=== PATIENT | male | born 1955 | race Caucasian/White ===

== ENCOUNTER → 2017-10-18 10:46 | Outpatient (CLI) | payer OTHER, SELFPAY | PROVIDERS: Visit Provider Physician Assistant | DX: N39.0 Urinary tract infection, site not specified (principal) | CPT/HCPCS: 87086; 87186 ==

== ENCOUNTER → 2018-06-19 09:43 | Outpatient (CLI) | payer OTHER, SELFPAY | PROVIDERS: Visit Provider Physician Assistant | DX: R50.9 Fever, unspecified (principal) | CPT/HCPCS: 87400 ==

== ENCOUNTER → 2019-03-21 08:31 | Outpatient (CLI) | payer OTHER, SELFPAY ==
[2019-03-21 09:44] LABS: Cholesterol 226 mg/dL (140-199); Glucose Promotional 93 mg/dL (80-110); HDL Cholesterol 92 mg/dL (40-60); LDL Cholesterol Calculated 125 mg/dL (<100); Triglycerides 44 mg/dL (35-150)
== END ==
DX: Z13.9 Encounter for screening, unspecified (principal)
CPT/HCPCS: 80061; 82947

== ENCOUNTER → 2019-06-09 07:42 | Outpatient (CLI) | payer MEDICARE, SELFPAY ==
[2019-06-09 09:14] LABS: BUN Creatinine Ratio 17.3 (6-22); Blood Urea Nitrogen 19 mg/dL (9-20); Calcium 9.3 mg/dL (8.4-10.2); Carbon Dioxide 32 mmol/L (22-32); Chloride 98 mmol/L (98-107); Estimated Glomerular Filt Rate > 60.0 mL/min (>60); Glucose 99 mg/dL (80-110); HEMOLYSIS < 15 (0-50); Potassium 4.3 mmol/L (3.4-5.1); Sodium 138 mmol/L (137-145)
[2019-06-09 09:35] LABS: Prostate Specific Antigen Scrn 0.492 ng/mL (0.1-4.0)
== END ==
PROVIDERS: PCP Student in an Organized Health Care Education/Training Program; Visit Provider Student in an Organized Health Care Education/Training Program
DX: Z12.5 Encounter for screening for malignant neoplasm of prostate (principal); E87.5 Hyperkalemia; R94.31 Abnormal electrocardiogram [ECG] [EKG]
CPT/HCPCS: 36415; 80048; G0103

== ENCOUNTER → 2019-07-12 15:44 | Outpatient (CLI) | payer MEDICARE, OTHER, SELFPAY ==
[2019-07-12 17:44] LABS: Albumin 4.6 g/dL (3.5-5.0); Lactate Dehydrogenase 438 U/L (313-618); Total Protein 7.8 g/dL (6.3-8.2)
[2019-07-12 17:45] LABS: Hemoglobin 13.4 g/dL (13.5-17.5); Mean Corpuscular HGB Conc 34.5 % (30-36); Mean Corpuscular Hemoglobin 32.6 PG (26-34); Mean Corpuscular Volume 94.4 fL (80-100); Platelet Count 197 X10^3/uL (150-400); Red Blood Cell Count 4.13 X10^6/uL (4.5-5.9); Red Cell Distribution Width 13.4 % (11.6-14.8); White Blood Cell Count 4.4 X10^3/uL (4.5-11.0)
[2019-07-12 21:10] LABS: Neutrophils Absolute Manual 2728 /uL (3000-5900); RBC Morphology Normal Morphology; Total Cells Counted 100
== END ==
PROVIDERS: PCP Student in an Organized Health Care Education/Training Program; Referring Provider Student in an Organized Health Care Education/Training Program; Visit Provider Student in an Organized Health Care Education/Training Program
DX: R59.1 Generalized enlarged lymph nodes (principal)
CPT/HCPCS: 36415; 82040; 83615; 84155; 85025

== ENCOUNTER → 2019-08-08 12:32 | Outpatient (CLI) | payer MEDICARE, OTHER, SELFPAY ==
--- NOTE | 2019-08-08 | DI.US.S_ITS ---
PROCEDURE: US SOFT TISSUE HEAD AND NECK INDICATIONS: RIGHT SUPRAMANDIBULAR LUMP X 2 MONTHS TECHNIQUE: Real-time scanning was performed of the neck region of interest, with image documentation. COMPARISON: None. FINDINGS: 1.0 x 0.4 x 1.0 cm possible lymph node versus mass with hypoechoic appearance. No internal vascularity which is seen anterior to the mandible. IMPRESSION: Presumed lymph node seen in the region of perimandibular palpable abnormality. No definite pathologic enlargement although recommend clinical management, and if needed continued ultrasound surveillance. If this enlarges or based on high clinical suspicion, ultrasound guided FNA could be considered. Dictated by: Linwood Savage M.D. on 08/08/2019 at 16:28 Approved by: Linwood Savage M.D. on 08/08/2019 at 16:30
== END ==
PROVIDERS: PCP Student in an Organized Health Care Education/Training Program; Referring Provider Otolaryngology; Visit Provider Otolaryngology
DX: R22.0 Localized swelling, mass and lump, head (principal)
CPT/HCPCS: 76536

== ENCOUNTER → 2022-03-11 14:36 | Outpatient (CLI) | payer MEDICARE, OTHER, SELFPAY ==
[2022-03-11 16:49] LABS: Add Manual Diff / Slide Review NO; Basophils Absolute Auto 0 /uL (0-100); Eosinophils Absolute Auto 300 /uL (0-450); Eosinophils Percent Auto 8.4 % (2-4); Hematocrit 33.1 % (41-53); Hemoglobin 11.6 g/dL (13.5-17.5); Lymphocytes Absolute Auto 900 /uL (1100-4500); Lymphocytes Percent Auto 29.5 % (25-40); Mean Corpuscular Hemoglobin 33.1 PG (26-34); Mean Corpuscular Volume 94.6 fL (80-100); Monocytes Absolute Auto 200 /uL (0-900); Monocytes Percent Auto 6.4 % (3-14); Neutrophils Absolute Auto 1800 /uL (1500-7000); Neutrophils Percent Auto 54.7 % (50-75); Platelet Count 187 X10^3/uL (150-400); Red Cell Distribution Width 13.7 % (11.6-14.8); White Blood Cell Count 3.2 X10^3/uL (4.5-11.0)
[2022-03-11 17:42] LABS: Prostate Specific Antigen Scrn 0.547 ng/mL (0.1-4.0)
[2022-03-12 16:20] LABS: Hep C Virus Ab w/Reflex Quant NEGATIVE s/c (NEGATIVE)
== END ==
PROVIDERS: PCP Student in an Organized Health Care Education/Training Program; Referring Provider Student in an Organized Health Care Education/Training Program; Visit Provider Student in an Organized Health Care Education/Training Program
DX: D64.9 Anemia, unspecified (principal); Z12.5 Encounter for screening for malignant neoplasm of prostate; Z11.59 Encounter for screening for other viral diseases
CPT/HCPCS: 36415; 85025; 86803; G0103

== ENCOUNTER → 2022-03-18 07:34 | Outpatient (CLI) | payer MEDICARE, OTHER, SELFPAY ==
[2022-03-18 11:09] LABS: Reticulocyte Count, Percent 0.8 % (0.9-2.6)
[2022-03-18 11:38] LABS: HEMOLYSIS < 15 (0-50); Iron 108 ug/dL (49-181)
[2022-03-18 11:51] LABS: Percent Iron Saturation 43 % (20-50); Total Iron Binding Capacity 251 ug/dL (261-462); Transferrin 174 mg/dL (206-381)
[2022-03-18 11:52] LABS: Alanine Aminotransferase 12 IU/L (<50); Albumin 4.1 g/dL (3.5-5.0); Albumin Globulin Ratio 0.7 (1.0-2.8); Alkaline Phosphatase 75 U/L (38-126); Aspartate Aminotransferase 30 IU/L (17-59); BUN Creatinine Ratio 15.7 (6-22); Bilirubin Total 0.5 mg/dL (0.2-1.3); Blood Urea Nitrogen 19 mg/dL (9-20); Calcium 9.5 mg/dL (8.4-10.2); Carbon Dioxide 28 mmol/L (22-32); Chloride 98 mmol/L (98-107); Estimated Glomerular Filt Rate > 60 mL/min (>60); Globulin 6.2 g/dL (1.7-4.1); Glucose 89 mg/dL (80-110); HEMOLYSIS < 15 (0-50); Lactate Dehydrogenase 311 U/L (313-618); Potassium 4.5 mmol/L (3.4-5.1); Sodium 139 mmol/L (137-145); Total Protein 10.3 g/dL (6.3-8.2)
[2022-03-18 12:10] LABS: TSH w/ Reflex to FT4 6.21 uIU/mL (0.47-4.68)
[2022-03-18 12:18] LABS: Ferritin 172 ng/mL (18-464)
[2022-03-18 12:51] LABS: Free T4, Direct Thyroxine 0.99 ng/dL (0.78-2.19)
== END ==
PROVIDERS: PCP Student in an Organized Health Care Education/Training Program; Referring Provider Student in an Organized Health Care Education/Training Program; Visit Provider Student in an Organized Health Care Education/Training Program
DX: D64.9 Anemia, unspecified (principal)
CPT/HCPCS: 36415; 80053; 82607; 82728; 82746; 83540; 83550; 83615; 84439; 84443; 85045

== ENCOUNTER → 2022-03-31 10:44 | Outpatient (CLI) | payer MEDICARE, OTHER, SELFPAY ==
[2022-03-31 12:19] LABS: COVID19 -Nasal RAPID Negative (Negative)
== END ==
PROVIDERS: PCP Student in an Organized Health Care Education/Training Program; Visit Provider Surgery
DX: Z01.812 Encounter for preprocedural laboratory examination (principal); Z20.822 Contact with and (suspected) exposure to COVID-19
CPT/HCPCS: 87635

== ENCOUNTER → 2022-03-31 10:46 | Outpatient (CLI) | payer MEDICARE, OTHER, SELFPAY ==
[2022-04-01 09:03] LABS: IGA 3674 mg/dL (61-437); IGG 296 mg/dL (603-1613); IGM 8 mg/dL (20-172)
[2022-04-01 17:44] LABS: Free Kappa Lt Chains, Serum 127.7 mg/L (3.3-19.4); Free Lambda Lt Chains,Serum 2.4 mg/L (5.7-26.3)
[2022-04-02 19:00] LABS: Albumin 4.1 g/dL (2.9-4.4); Alpha 1 Globulin 0.2 g/dL (0.0-0.4); Alpha 2 Globulin 0.6 g/dL (0.4-1.0); Beta 1 Globulin 0.8 g/dL (0.7-1.3); Gamma Globulin 3.7 g/dL (0.4-1.8); Immunoglobulin A 3783 mg/dL (61-437); Immunoglobulin G 301 mg/dL (603-1613); Immunoglobulin M 8 mg/dL (20-172); Protein, Total 9.4 g/dL (6.0-8.5)
== END ==
PROVIDERS: PCP Student in an Organized Health Care Education/Training Program; Referring Provider Student in an Organized Health Care Education/Training Program; Visit Provider Student in an Organized Health Care Education/Training Program
DX: Z01.812 Encounter for preprocedural laboratory examination (principal); D47.2 Monoclonal gammopathy; D64.9 Anemia, unspecified; Z20.822 Contact with and (suspected) exposure to COVID-19
CPT/HCPCS: 36415; 82784; 83883; 84155; 84165; 87635; C9803

== ENCOUNTER 2022-04-02 10:57 | Day surgery (SDC) | payer MEDICARE, OTHER, SELFPAY ==
[2022-04-02 11:18] VITALS: BP 118/67; PULSE 54; RESP 16; TEMP 36.1; O2SAT 100; BMI 23.3
[2022-04-02] MEDS: LACTATED RINGERS 1,000 ML 100 ML IV (11:29)
--- NOTE | 2022-04-02 12:54 | P.HP_ITS ---
History of Present Illness History of Present Illness Date Patient Seen: 04/02/22 Time Patient Seen: 12:55 Chief complaint: SCREENING COLONOSCOPY Narrative: Ashish is a 66-year-old man who is here for a colonoscopy. His last colonoscopy was about 10 years ago and no polyps were found. He has no known family history of colon cancer. Patient History Medical History (Updated 04/02/22 @ 12:55 by Karl Cheney MD) Chicken pox (~1959) Mass of soft tissue of face Measles (~1959) Mixed hyperlipidemia Mumps (~1959) Scalp psoriasis Skin cancer (~2007) Varicose veins of both lower extremities Vision disorder Surgical History (Updated 11/15/18 @ 21:33 by Amara Mercado) Anesthesia Basal cell carcinoma (~02/29/08) History of colonoscopy [place] teeth removed Family & Social History Family History (Updated 11/15/18 @ 21:35 by Amara Mercado) Father Cancer Mother Stroke Sister Multiple sclerosis Social History: household members spouse Tobacco & Substance use: Smoking Status Never smoker alcohol intake frequency a few times a week Substance Use Type does not use Meds Home Medications and Allergies Allergies Allergy/AdvReac Type Severity Reaction Status Date / Time No Known Drug Allergies Allergy Verified 04/02/22 11:13 Exam Vital Signs (past 8 hours): - 04/02/22 11:18 Temperature 97.0 F L Pulse Rate 54 L Respiratory Rate 16 Blood Pressure 118/67 Pulse Oximetry 100 Oxygen Delivery Method Room Air Oxygen Delivery Method Room Air Const General: healthy appearing Assessment & Plan Assessment and plan (1) Colon cancer screening: Status: Acute Plan Ashish is a 66-year-old man here for colonoscopy for colon cancer screening. We reviewed the risks and benefits and he would like to proceed. Time Spent With Patient Critical Care time: I spent a total of [] minutes of critical care time on this patient's care today; this time is exclusive of procedural time.
--- NOTE | 2022-04-02 13:10 | SUR.OPER ---
CECUM AT 1309
[2022-04-02 13:18] VITALS: BP 98/51; PULSE 58; RESP 13; TEMP 36.8; O2SAT 98
--- NOTE | 2022-04-02 13:18 | PM.OP.COLON ---
Operative Date/Time/Diagnoses Date of procedure: 04/02/22 Time of procedure: 13:18 Pre-op diagnosis: Colon cancer screening Post-op diagnosis: same Procedure & Clinicians Study performed: Colonoscopy Same procedure as scheduled: Yes Surgeon: Karl Cheney Procedure Notes Procedure in detail: Surgeon: Karl Cheney MD Anesthesia: MAC by Dr. Gifford Procedure: The patient was brought to the endoscopy suite, placed in left lateral decubitus position. The patient was connected to monitoring devices. A time-out was performed. Sedation was administered. Once the patient was adequately sedated, a digital rectal exam was performed and was normal. The scope was then inserted and advanced to the cecum where the appendiceal orifice was identified and photographed. The scope was then slowly withdrawn over greater than 6 minutes. The mucosa was thoroughly inspected. No abnormalities were noted. The scope was retroflexed in the rectum. No abnormalities were noted. The scope was straightened and removed. The patient was awakened and brought to recovery. Scope withdrawal time: 6 minutes Sedation time: 16 minutes EBL: 0 Findings: Normal colon Post-procedure Recommendations: Colonoscopy in 10 years Disposition: PACU
[2022-04-02 13:23] VITALS: BP 98/53; PULSE 52; RESP 10; O2SAT 100
[2022-04-02 13:28] VITALS: BP 105/61; PULSE 51; RESP 9; O2SAT 98
[2022-04-02 13:33] VITALS: BP 94/51; PULSE 55; RESP 8; O2SAT 10
[2022-04-02 13:44] VITALS: BP 98/54; PULSE 66; RESP 16; TEMP 36.2; O2SAT 98
== END 2022-04-02 13:48 | disposition home or self-care (01) ==
PROVIDERS: PCP Student in an Organized Health Care Education/Training Program; Referring Provider Surgery; Visit Provider Surgery
PROC: 0DJD8ZZ Inspection of Lower Intestinal Tract, Via Natural or Artificial Opening Endoscopic (ICD-10-PCS; CPT 45378; principal; 2022-04-02 12:15)
DX: Z12.11 Encounter for screening for malignant neoplasm of colon (principal)
CPT/HCPCS: G0121; 99152; J2704; J3010

== ENCOUNTER → 2022-05-19 13:47 | Outpatient (CLI) | payer MEDICARE, OTHER, SELFPAY ==
--- NOTE | 2022-05-19 13:49 | DI.RAD.S_ITS ---
PROCEDURE: XR BONE SURVEY INDICATIONS: suspect multiple myeloma, assess for lytic lesions TECHNIQUE: Multiple views obtained of various bony structures as described below. COMPARISON: None. FINDINGS: Skull (lateral): No suspicious bony lesions. No fractures. Thoracic spine (AP, lateral): No suspicious bony lesions. No acute vertebral body compression fractures. Degenerative disc disease throughout mid to lower thoracic spine is seen. Lumbar spine (AP, lateral): No suspicious bony lesions. No acute vertebral body compression fractures. Mild degenerative disc disease throughout lumbar spine is seen. Pelvis (AP): No suspicious bony lesions. No fractures. Overlying soft tissues appear unremarkable. Right and left humeri (AP): Subtle small radiolucent areas involving right proximal humeral shaft are seen. No fractures. Overlying soft tissues appear unremarkable. Right and left femurs (AP): Limited evaluation of bony pelvis due to significant overlying bowel gas. Radiolucent area involving right proximal femoral shaft is seen measures 7 mm in size. Questionable radiolucent areas also seen scattered throughout bilateral bony pelvis and bilateral femoral head and neck region. No fractures. Overlying soft tissues appear unremarkable. IMPRESSION: 1. No definite lytic lesions are seen in skull, thoracic and lumbar spine. 2. Finding may represent small lytic lesions scattered in right proximal humeral shaft medullary space. No fracture or dislocation is seen. 3. Limited evaluation of bony pelvis and bilateral femoral head due to overlying fecal matter field bowel loops. Underlying lytic lesions scattered in bony pelvis cannot be excluded. Consider CT of pelvis for further evaluation. Additional possible small lytic lesion also seen in right proximal femoral shaft measures 7 mm in size. No pathologic fracture. Dictated by: Brandon Brooks M.D. on 05/19/2022 at 15:12 Approved by: Brandon Brooks M.D. on 05/19/2022 at 15:16
== END ==
PROVIDERS: PCP Student in an Organized Health Care Education/Training Program; Referring Provider Internal Medicine Medical Oncology; Visit Provider Internal Medicine Medical Oncology
DX: C90.00 Multiple myeloma not having achieved remission (principal); M51.36 Other intervertebral disc degeneration, lumbar region; M51.34 Other intervertebral disc degeneration, thoracic region
CPT/HCPCS: 77075

== ENCOUNTER → 2022-07-17 15:52 | Outpatient (CLI) | payer MEDICARE, OTHER, SELFPAY ==
--- NOTE | 2022-07-17 15:53 | DI.MRI.S_ITS ---
PROCEDURE: MR BONE MARROW INDICATIONS: myeloma staging, back pain TECHNIQUE: Noncontrast sagittal T1 spin echo and STIR through the spine; coronal T1 spin echo and STIR through the bony thorax, coronal T1 spin echo and STIR through the bony pelvis and femurs. COMPARISON: [facility], CR, XR BONE SURVEY, 05/19/2022, 13:53. [facility], NM, NM PET CT FUSION WHOLE BODY, 05/27/2022, 9:56. FINDINGS: Image quality: This examination is limited by involuntary motion artifact. Spine: All visualized vertebral bodies are normally aligned. At the T7 level, there is a remote anterior wedge deformity, with 40-50% loss of height anteriorly. No acute appearing vertebral body compression fractures. Within the posterior T10 level, there is a focus of bone marrow signal abnormality, as on series 7, image 15 and on series 5 image 15 that measures up to 1 cm, with decreased T1 weighted signal increased STIR signal. The bone marrow otherwise demonstrates no suspicious lesions or signal abnormalities. The central spinal canal is of normal overall caliber. The visualized spinal cord demonstrates normal intramedullary signal. The conus is in expected position. No epidural or paravertebral soft tissue masses. Pelvis and hips: The bone marrow demonstrates normal signal throughout. No pelvic ring or sacral pathologic or insufficiency fractures. Physiologic amounts of hip joint fluid are present. No joint degeneration or soft tissue bursal fluid collections. Soft tissues: There is a trace right-sided pleural effusion. No free pelvic fluid. No pathologic pelvic or inguinal adenopathy. Visualized bowel loops appear normal in caliber. Limited images through the genitourinary tract demonstrate no abnormalities. The muscles demonstrate normal overall bulk and internal signal. IMPRESSION: Solitary focus within the posterior T10 level, which is mildly suspicious for neoplastic involvement. Please consider short-term follow-up in 3 months for further evaluation. T7 anterior wedge deformity seen, without acute features, yet this is not seen on the plain films 05/19/2022. Additional findings: Trace right-sided pleural effusion. Dictated by: Steve Birmingham M.D. on 07/17/2022 at 16:13 Approved by: Steve Birmingham M.D. on 07/17/2022 at 16:19
== END ==
PROVIDERS: PCP Student in an Organized Health Care Education/Training Program; Referring Provider Internal Medicine Medical Oncology; Visit Provider Internal Medicine Medical Oncology
DX: C90.00 Multiple myeloma not having achieved remission (principal)
CPT/HCPCS: 77084

== ENCOUNTER → 2022-08-08 10:02 | Outpatient (CLI) | payer MEDICARE, OTHER, SELFPAY ==
--- NOTE | 2022-08-08 10:04 | DI.RAD.S_ITS ---
PROCEDURE: XR THORACIC SPINE 3V INDICATIONS: THORACIC BACK PAIN TECHNIQUE: 3 views of the thoracic spine were acquired. COMPARISON: [facility], MR, MR BONE MARROW, 07/17/2022, 16:21. FINDINGS: Bones: There has been interval worsening of a T7 anterior wedge compression fracture with reference to the MR scanning 07/17/22. The vertebral height reduction is greater anteriorly than posteriorly, and the anterior height reduction is estimated 56% when compared to the normal vertebral body at T8 immediately below. Additionally there is posterior height reduction at the T7 vertebral body, with reference to the normal appearing levels above and below. There is a current 10-15% height reduction when compared to the normal appearing vertebral height more posteriorly.. No suspicious bony lesions. 12 pairs of ribs are noted, and appear intact where visualized. Soft tissues: No paravertebral stripe thickening. IMPRESSION: Worsening anterior wedge compression fracture at T7, etiology uncertain, with 56% height reduction anteriorly and approximately 10-15% height reduction posteriorly when compared to the normal vertebral heights above and below. This represents a significant change from an MR scan performed 07/17/22. An osteolytic or blastic bone lesion is not found. No additional compression fracture is seen elsewhere over the visualized thoracic spine. Dictated by: Rohith Pickard M.D. on 08/08/2022 at 20:23 Approved by: Rohith Pickard M.D. on 08/08/2022 at 20:29
== END ==
PROVIDERS: Family Provider Student in an Organized Health Care Education/Training Program; PCP Student in an Organized Health Care Education/Training Program; Referring Provider Anesthesiology; Visit Provider Anesthesiology
DX: M48.54XA Collapsed vertebra, not elsewhere classified, thoracic region, initial encounter for fracture (principal); M54.6 Pain in thoracic spine
CPT/HCPCS: 72072

== ENCOUNTER → 2022-08-21 12:38 | Outpatient (CLI) | payer MEDICARE, OTHER, SELFPAY ==
--- NOTE | 2022-08-21 13:04 | DI.DEXA.S_ITS ---
Name: JAMAL AVELAR Age: 67 Sex: Male Ethnicity: White Date of : 1955 Indication: prior fracture; Referring Provider: JERAMY LAND Study: Bone densitometry was performed. Exam Date: August 21, 2022 Accession number: [id number] Bone Density: Region BMD T-score Z-score Classification AP Spine(L1-L4) 0.923 -1.1 -0.7 Osteopenia Femoral Neck (Left) 0.695 -1.4 -0.6 Osteopenia Total Hip (Left) 0.894 -0.4 -0.3 Normal Femoral Neck (Right) 0.704 -1.3 -0.5 Osteopenia Total Hip (Right) 0.867 -0.6 -0.5 Normal Total Hip Mean 0.881 -0.5 -0.4 Normal World Health Organization criteria for BMD impression classify patients as: Normal (T-score at or above -1.0), Osteopenia (T-score between -1.0 and -2.5), or Osteoporosis (T-score at or below -2.5). 10-year Fracture Risk: FRAX not reported because: Prior hip or vertebral fracture Impression: The patient has low bone mass, based on the Left Femoral Neck T-score. The patient has risk factors, including: previous fracture. Discussion: INCREASED RISK OF FRACTURE DUE TO HISTORY OF LOW TRAUMA FRACTURE. The patient's previous fracture puts the patient at high risk of a future fracture. In untreated patients, the risk of osteoporotic fracture increases approximately two-fold for each 1.0 SD decrease in T-score. Low bone density is not the only risk factor for fracture; also consider factors such as patient's age, frailty or poor health, risk of falling, risk of injury, previous osteoporotic fracture, family history of osteoporosis, cigarette smoking, low body weight, etc. Not everyone with a low trauma fracture has osteoporosis; osteomalacia and other metabolic bone disorders should also be considered. Patients who have osteoporosis should be evaluated for specific diseases and conditions (secondary causes) that may cause or contribute to bone loss and fracture risk. National Osteoporosis Foundation (NOF) recommends pharmacologic intervention for patients with a prior low trauma hip or vertebral fracture regardless of BMD T-score. The patient should follow a healthful lifestyle (good nutrition with adequate calcium and vitamin D, and appropriate weight-bearing exercise). Follow-Up: Consider a repeat BMD and Vertebral Fracture Assessment (VFA) exam in 2 years or sooner if medically necessary, to reassess this patient's status. Reported by: REBEKAH KATHLEEN M.D. on 08/21/2022 1:23:00 PM.
== END ==
PROVIDERS: Family Provider Student in an Organized Health Care Education/Training Program; PCP Student in an Organized Health Care Education/Training Program; Referring Provider Student in an Organized Health Care Education/Training Program; Visit Provider Student in an Organized Health Care Education/Training Program
DX: S22.060A Wedge compression fracture of T7-T8 vertebra, initial encounter for closed fracture (principal); C90.00 Multiple myeloma not having achieved remission; M85.80 Other specified disorders of bone density and structure, unspecified site; T38.0X5A Adverse effect of glucocorticoids and synthetic analogues, initial encounter; M85.88 Other specified disorders of bone density and structure, other site
CPT/HCPCS: 77080

== ENCOUNTER 2022-09-16 11:15 | Outpatient (RCR) | payer MEDICARE, OTHER, SELFPAY ==
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
--- NOTE | 2022-08-05 16:20 | PT.OPPOC ---
Physical, Occupational & Speech Therapy At [facility] Current Diagnoses Pain in thoracic spine (08/05/22) Abnormal posture (08/05/22) Weakness (08/05/22) Visit Care Team Role Provider Type Ed Avalos MD Attending Provider Physician Family Provider Primary Care Provider Referring Provider Specialty: Internal Medicine Address: [address] [place] [address], [address], [facility] Email: [email or web address] Plan Of Care PT-OP-T Assessment and Plan Start: 08/04/22 17:19 Freq: Status: Active Protocol: Document 08/05/22 13:53 SAK (Rec: 08/05/22 14:44 SAK [id number]) Physical Therapy Assessment Rehab Potential Rehabilitation Potential Good Evaluation Complexity Number of Personal Factors/Comorbidities 1-2 Number of Body Systems Impaired 3 Clinical Presentation at Evaluation Evolving Impairments Impairments Activity Tolerance,Pain, Posture,ROM Other Concerns Barriers to Rehabilitation multiple myeloma Goals Three Impairment limited trunk ROM Impairment decreased left trunk rotation and pain with left sidebending limiting that motion forward trunk flexion limited to 15 deg vs typically able to touch the floor [facility] Goal (LTG) patient to demonstrate trunk mobility WNL including ability to return to ability to touch the floor in a standing position and normal trunk rotation and sidebending LTG Duration 11/05/22 Two Impairment postural dysfunction Impairment excess thoracic kyphosis, protracted and elevated scapulas, winging right scapula, flattened lumbar spine, Short Term Goal (STG) Patient to be instructed in neutral postural alignment and in HEP for purposes of postural correction including strengthening posterior chain musculature STG Duration 09/19/22 School Nurse Goal (LTG) Patient to demonstrate ability to self-correct posture at rest and with functional activities and be indep with postural correction exercises LTG Duration 11/05/22 One Impairment Pain left thoracic spine with radiation anteriorly Impairment severe limitation in activity level and unable to lay in bed to sleep Short Term Goal (STG) Decrease pain at least 50% with all usual activity. STG Duration 09/19/22 [facility] Goal (LTG) Decrease pain by at least 75% with all usual activies, and able to return to sleeping in bed and resume his usual exercise activities without an increase in pain LTG Duration 11/05/22 Assessment Summary Assessment Patient presenets to PT with function-limiting pain medial to left scapula with tenderness, pain radiates anterior thoracic region.No known reason except possibly due to handling heavy suitcases on vacation; pain came on while on vacation and worsened upon return. Signs and symptoms include postural dysfunction with excess thoracic kyphosis, flattened lumbar spine, protracted scapula left greater than right, winging right scapula, left shoulder lower than right , excess muscle tone right upper trap. Patient's pain inc with left sidebending improves with right sidebending, limited forward flexion to 15 deg, backward bending dec pain. Tightness right UT, protraction left scapula, winging right scapula . He was instructed in HEP for purposes of gentle thoracic mobility, postural correction, and self-massage; he was issued a handout and demonstrated good understanding. POC was discussed and patient was in agreement. Physical Therapy Plan Frequency and Duration Frequency of Treatment 2x/Week Duration of treatment (weeks) 12 Plan of Care Start Date 08/05/22 Plan of Care End Date 11/05/22 Plan of Care Dates Plan of Care Start Date 08/05/22 Plan of Care End Date 11/05/22 Electronically Signed by: Keyla Keys, PT 08/05/22 1028 If you are in agreement with this Plan of Care, please return a signed and dated copy. I have reviewed this Plan of Care and certify that the skilled therapy services above are required to meet the patient?s needs. Physician Signature Date Printed Name and Credentials Clinical Instructor Signature Printed Name and Credentials
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
--- NOTE | 2022-08-17 16:28 | PT.OTN ---
Current Diagnoses Pain in thoracic spine (08/17/22) Abnormal posture (08/17/22) Weakness (08/17/22) Physical Therapy Treatment Note PT-OP-A Visit Information Start: 08/04/22 17:19 Freq: Status: Active Protocol: Document 08/17/22 13:48 SAK (Rec: 08/17/22 14:33 SAK [id number]) Out-Patient Physical Therapy Visit Information Visit Information Visit Type Treatment Note Visit Start Time 13:48 Visit Stop Time 14:30 Total Visit Minutes 42 Visit Number 3 Evaluation Information Evaluation Date 08/05/22 Precautions Precautions Patient currently in treatment for lymphoma PT-OP-B Current Condition Start: 08/04/22 17:19 Freq: Status: Active Protocol: Document 08/17/22 13:48 SAK (Rec: 08/17/22 14:33 [facility]AK [id number]) Current Condition History of Current Condition Onset Date 6-7 weeks Current Complaints mid back pain History of Current Condition in [place] in May, midway into [facility] pain came on for no known reason . Was taking walks of 4-8miles per day, some swimming and snorkeling, never felt injury. When got home Jul 03 continued to get worse. Couldn't take a deep breath; helped some with chiropractor. Following chiropractor visit told T10 locked up, loosened that up. Problem worst is at T7, chiropractor stated he couldn' t do anything. Pain is up under the bottom of left shoulder blade. Right now worst pain left lateral trunk. Doing some exercises that seem to help some; right sidebending stretch, trunk rotation. Hasn't been able to sleep in bed yet due to pain. Typically does a lot of core strength; planks, side planks but unable to do any exercise at this time. Only thing can think of cause is heavy suitcases (50#) though tried to be careful. Discrepancy between x-ray and MRI results. States Wednesday night at 6:30 a lot of the pain decreased significantly for no known reason , yesterday; while sitting in infusion chair pain went away for awhile; Tuesdays and Wednesdays are when gets infusions and including steriods; those are best days for his pain. Today is his best day in weeks. Seeing Chalino Garcia chiropractor. Prior Treatments and Tests per Dr. Avalos's note in EMR : Relevant medical history includes a recent spinal MRI done to assess multiple myeloma, which includes an incidental finding of an anterior compression defect at T7. An x-ray skeletal survey in April 2022 does not have this defect . I evaluated the images myself and confirmed the disparity with Radiology. Under treatment for multiple myeloma, being referred for stem cell transplant. PT-OP-C Subjective Start: 08/04/22 17:19 Freq: Status: Active Protocol: Document 08/17/22 13:48 SAK (Rec: 08/17/22 14:33 [facility] [id number]) OP-PT Subjective Patient Comments Patient Comments Thinks overdid doorway stretch because feeling so good to back, front of chest now hurting, has backed off. States tennis ball and deep breathing very helpful. Did lay down on his side in bed, both sides of ribs hurt, was able to get back up without inc pain but unable to stay down. PT-OP-J Posture/Palpation/Skin Start: 08/04/22 17:19 Freq: Status: Active Protocol: Document 08/05/22 14:53 SAK (Rec: 08/05/22 16:18 [facility] [id number]) Posture Evaluation Position Standing Head/C-Spine Posture Forward Head T-Spine Posture Increased Kyphosis L-Spine Posture Decreased Lordosis Scapula Posture (R) Protracted,(L) Retracted Arm Posture (L) Internally Rotated,(R) Internally Rotated Palpation Assessment Location left thoracic Palpation Findings Tenderness Palpation Details T7-9 lateral radiating anterior PT-OP-K Range of Motion Start: 08/04/22 17:19 Freq: Status: Active Protocol: Document 08/05/22 14:53 SAK (Rec: 08/05/22 16:18 [facility] [id number]) Lumbar Spine Range of Motion Lumbar Spine Active Testing Position Standing Flexion 15 Extension 10 Rotation Left 30 Rotation Right 40 Lateral Flexion Left 25 Lateral Flexion Right 35 ROM Limitations Pain PT-OP-Q Treatments Start: 08/04/22 17:19 Freq: Status: Active Protocol: Document 08/17/22 13:48 SAK (Rec: 08/17/22 14:33 [facility] [id number]) Cardio Equipment Recumbent Stepper (Sci-Fit) Duration (Minutes) 8 Resistance 1.5 Seat Position 13 Therapeutic Exercises Sitting Exercises deep breathing Reps/Minutes 5x lateral stretch Comments painful cat/cow Comments cues for smaller motion painfree ROM lat pull Resistance L1 TB facing away Reps/Minutes 10X Standing Exercises wall posture Standing Exercise Name postural amadeo, angels Reps/Minutes 10x ea serratus punch Standing Exercise Name HEP doorway Standing Exercise Name stretch Reps/Minutes verbal review for more gentle stretch row, sh ext Resistance L1>2 TB Reps/Minutes 12x Comments verbal and tactile cues Manual Therapy Treatment Soft Tissue Mobilization thoracolumbar paraspinals Mobilization Type Myofascial Release,Strumming Intensity/Depth gentle Body Position Sitting Comments leaning forward on pillows Self-Care/Home Management Treatment Education Patient Education Home Exercise Program,Pain Management,Posture PT-OP-T Assessment and Plan Start: 08/04/22 17:19 Freq: Status: Active Protocol: Document 08/17/22 13:48 SAK (Rec: 08/17/22 14:33 SAK [id number]) Physical Therapy Assessment Goals Three Impairment limited trunk ROM Impairment decreased left trunk rotation and pain with left sidebending limiting that motion forward trunk flexion limited to 15 deg vs typically able to touch the floor Jail Goal (LTG) patient to demonstrate trunk mobility WNL including ability to return to ability to touch the floor in a standing position and normal trunk rotation and sidebending LTG Duration 11/05/22 Two Impairment postural dysfunction Impairment excess thoracic kyphosis, protracted and elevated scapulas, winging right scapula, flattened lumbar spine, Short Term Goal (STG) Patient to be instructed in neutral postural alignment and in HEP for purposes of postural correction including strengthening posterior chain musculature STG Duration 09/19/22 Robotics Testing Technician Goal (LTG) Patient to demonstrate ability to self-correct posture at rest and with functional activities and be indep with postural correction exercises LTG Duration 11/05/22 One Impairment Pain left thoracic spine with radiation anteriorly Impairment severe limitation in activity level and unable to lay in bed to sleep Short Term Goal (STG) Decrease pain at least 50% with all usual activity. STG Duration 09/19/22 Jail Goal (LTG) Decrease pain by at least 75% with all usual activies, and able to return to sleeping in bed and resume his usual exercise activities without an increase in pain LTG Duration 11/05/22 Progress Towards Goals Progress Towards Goals Progressing Toward Goals Assessment Summary Assessment Continues to report improvement though overdid exercises at home. Able to take shirts off easily now whereas before PT states it was very painful. Added wall posture, and wall angles with wall posture with good tolerance. States use of tennis ball for self-massage continues to be astonishingly helpful. Physical Therapy Plan Frequency and Duration Frequency of Treatment 2x/Week Duration of treatment (weeks) 12 Plan of Care Start Date 08/05/22 Plan of Care End Date 11/05/22 Therapeutic Interventions Therapeutic Interventions Home Exercise Program,Manual Therapy,Patient/Caregiver Education,Self-Care/Home Management,Soft Tissue Mobilization,Taping, Therapeutic Activities, Therapeutic Exercises Modalities Cold Pack/Ice Massage,Electric Stimulation,Hot Packs, Ultrasound Next Visit Focus/Plan Next Note Type Treatment Note Next Visit Plan assess response to today's addition of ther ex. Progress as able with postural correction/strengthening and flexibility/ROM
--- NOTE | 2022-08-19 10:34 | PT.OTN ---
Current Diagnoses Pain in thoracic spine (08/19/22) Abnormal posture (08/19/22) Weakness (08/19/22) Physical Therapy Treatment Note PT-OP-A Visit Information Start: 08/04/22 17:19 Freq: Status: Active Protocol: Document 08/19/22 09:50 SAK (Rec: 08/19/22 10:34 [facility] [id number]) Out-Patient Physical Therapy Visit Information Visit Information Visit Type Treatment Note Visit Start Time 09:50 Visit Stop Time 10:30 Total Visit Minutes 42 Visit Number 4 Evaluation Information Evaluation Date 08/05/22 Precautions Precautions Patient currently in treatment for lymphoma PT-OP-B Current Condition Start: 08/04/22 17:19 Freq: Status: Active Protocol: Document 08/19/22 09:50 SAK (Rec: 08/19/22 10:34 SAK [id number]) Current Condition History of Current Condition Onset Date 6-7 weeks Current Complaints mid back pain History of Current Condition in [place] in May, midway into [facility] pain came on for no known reason . Was taking walks of 4-8miles per day, some swimming and snorkeling, never felt injury. When got home Jul 03 continued to get worse. Couldn't take a deep breath; helped some with chiropractor. Following chiropractor visit told T10 locked up, loosened that up. Problem worst is at T7, chiropractor stated he couldn' t do anything. Pain is up under the bottom of left shoulder blade. Right now worst pain left lateral trunk. Doing some exercises that seem to help some; right sidebending stretch, trunk rotation. Hasn't been able to sleep in bed yet due to pain. Typically does a lot of core strength; planks, side planks but unable to do any exercise at this time. Only thing can think of cause is heavy suitcases (50#) though tried to be careful. Discrepancy between x-ray and MRI results. States Wednesday night at 6:30 a lot of the pain decreased significantly for no known reason , yesterday; while sitting in infusion chair pain went away for awhile; Tuesdays and Wednesdays are when gets infusions and including steriods; those are best days for his pain. Today is his best day in weeks. Seeing Chalino Garcia chiropractor. Prior Treatments and Tests per Dr. Avalos's note in EMR : Relevant medical history includes a recent spinal MRI done to assess multiple myeloma, which includes an incidental finding of an anterior compression defect at T7. An x-ray skeletal survey in April 2022 does not have this defect . I evaluated the images myself and confirmed the disparity with Radiology. Under treatment for multiple myeloma, being referred for stem cell transplant. PT-OP-C Subjective Start: 08/04/22 17:19 Freq: Status: Active Protocol: Document 08/19/22 09:50 SAK (Rec: 08/19/22 10:34 [facility] [id number]) OP-PT Subjective Patient Comments Patient Comments Feels both steroids and exercises helpful. Wall posture exercises difficult, hasn't tried sleeping in bed yet. Walked 1.5 slow miles past couple days PT-OP-J Posture/Palpation/Skin Start: 08/04/22 17:19 Freq: Status: Active Protocol: Document 08/05/22 14:53 SAK (Rec: 08/05/22 16:18 [facility] [id number]) Posture Evaluation Position Standing Head/C-Spine Posture Forward Head T-Spine Posture Increased Kyphosis L-Spine Posture Decreased Lordosis Scapula Posture (R) Protracted,(L) Retracted Arm Posture (L) Internally Rotated,(R) Internally Rotated Palpation Assessment Location left thoracic Palpation Findings Tenderness Palpation Details T7-9 lateral radiating anterior PT-OP-K Range of Motion Start: 08/04/22 17:19 Freq: Status: Active Protocol: Document 08/05/22 14:53 SAK (Rec: 08/05/22 16:18 [facility] [id number]) Lumbar Spine Range of Motion Lumbar Spine Active Testing Position Standing Flexion 15 Extension 10 Rotation Left 30 Rotation Right 40 Lateral Flexion Left 25 Lateral Flexion Right 35 ROM Limitations Pain PT-OP-Q Treatments Start: 08/04/22 17:19 Freq: Status: Active Protocol: Document 08/19/22 09:50 SAK (Rec: 08/19/22 10:34 [facility] [id number]) Cardio Equipment Recumbent Stepper (Sci-Fit) Duration (Minutes) 10 Resistance 1.7 Seat Position 12 Other inc RPM's to 80 Therapeutic Exercises Standing Exercises wall posture Standing Exercise Name postural amadeo, angels Reps/Minutes 10x ea serratus punch Standing Exercise Name HEP row, sh ext Resistance L1>2 TB Reps/Minutes 12x Comments verbal and tactile cues Manual Therapy Treatment Soft Tissue Mobilization thoracolumbar paraspinals Mobilization Type Myofascial Release,Strumming Intensity/Depth Moderate Body Position Sitting Comments leaning forward on pillows, prone pillow PT-OP-T Assessment and Plan Start: 08/04/22 17:19 Freq: Status: Active Protocol: Document 08/19/22 09:50 [facility] (Rec: 08/19/22 10:34 [facility] [id number]) Physical Therapy Assessment Goals Three Impairment limited trunk ROM Impairment decreased left trunk rotation and pain with left sidebending limiting that motion forward trunk flexion limited to 15 deg vs typically able to touch the floor Care Home Goal (LTG) patient to demonstrate trunk mobility WNL including ability to return to ability to touch the floor in a standing position and normal trunk rotation and sidebending LTG Duration 11/05/22 Two Impairment postural dysfunction Impairment excess thoracic kyphosis, protracted and elevated scapulas, winging right scapula, flattened lumbar spine, Short Term Goal (STG) Patient to be instructed in neutral postural alignment and in HEP for purposes of postural correction including strengthening posterior chain musculature STG Duration 09/19/22 Care Home Goal (LTG) Patient to demonstrate ability to self-correct posture at rest and with functional activities and be indep with postural correction exercises LTG Duration 11/05/22 One Impairment Pain left thoracic spine with radiation anteriorly Impairment severe limitation in activity level and unable to lay in bed to sleep Short Term Goal (STG) Decrease pain at least 50% with all usual activity. STG Duration 09/19/22 Care Home Goal (LTG) Decrease pain by at least 75% with all usual activies, and able to return to sleeping in bed and resume his usual exercise activities without an increase in pain LTG Duration 11/05/22 Progress Towards Goals Progress Towards Goals Progressing Toward Goals Assessment Summary Assessment Reviewed HEP, mod cues for scapular activation and stab with theraband exercises. Pain dec, patient has not yet tried sleeping in bed or doing rowing motion to get back to using rowing machine. Good compliance to HEP, self- massage. Good amber for manual techniques. Physical Therapy Plan Frequency and Duration Frequency of Treatment 2x/Week Duration of treatment (weeks) 12 Plan of Care Start Date 08/05/22 Plan of Care End Date 11/05/22 Therapeutic Interventions Therapeutic Interventions Home Exercise Program,Manual Therapy,Patient/Caregiver Education,Self-Care/Home Management,Soft Tissue Mobilization,Taping, Therapeutic Activities, Therapeutic Exercises Modalities Cold Pack/Ice Massage,Electric Stimulation,Hot Packs, Ultrasound Next Visit Focus/Plan Next Note Type Treatment Note Next Visit Plan bed moblity as tolerated with yoga mat on table, continue ROM and s trengthening for thoracic region.
--- NOTE | 2022-08-24 16:11 | PT.OTN ---
Current Diagnoses Pain in thoracic spine (08/24/22) Abnormal posture (08/24/22) Weakness (08/24/22) Physical Therapy Treatment Note PT-OP-A Visit Information Start: 08/04/22 17:19 Freq: Status: Active Protocol: Document 08/24/22 13:02 [facility] (Rec: 08/24/22 13:48 [facility] [id number]) Out-Patient Physical Therapy Visit Information Visit Information Visit Type Treatment Note Visit Start Time 13:02 Visit Stop Time 13:45 Total Visit Minutes 43 Visit Number 5 Evaluation Information Evaluation Date 08/05/22 Precautions Precautions Patient currently in treatment for lymphoma PT-OP-B Current Condition Start: 08/04/22 17:19 Freq: Status: Active Protocol: Document 08/24/22 13:02 [facility] (Rec: 08/24/22 13:48 [facility] [id number]) Current Condition History of Current Condition Onset Date 6-7 weeks Current Complaints mid back pain History of Current Condition in [place] in May, midway into [facility] pain came on for no known reason . Was taking walks of 4-8miles per day, some swimming and snorkeling, never felt injury. When got home Jul 03 continued to get worse. Couldn't take a deep breath; helped some with chiropractor. Following chiropractor visit told T10 locked up, loosened that up. Problem worst is at T7, chiropractor stated he couldn' t do anything. Pain is up under the bottom of left shoulder blade. Right now worst pain left lateral trunk. Doing some exercises that seem to help some; right sidebending stretch, trunk rotation. Hasn't been able to sleep in bed yet due to pain. Typically does a lot of core strength; planks, side planks but unable to do any exercise at this time. Only thing can think of cause is heavy suitcases (50#) though tried to be careful. Discrepancy between x-ray and MRI results. States Wednesday night at 6:30 a lot of the pain decreased significantly for no known reason , yesterday; while sitting in infusion chair pain went away for awhile; Tuesdays and Wednesdays are when gets infusions and including steriods; those are best days for his pain. Today is his best day in weeks. Seeing Chalino Garcia chiropractor. Prior Treatments and Tests per Dr. Avalos's note in EMR : Relevant medical history includes a recent spinal MRI done to assess multiple myeloma, which includes an incidental finding of an anterior compression defect at T7. An x-ray skeletal survey in April 2022 does not have this defect . I evaluated the images myself and confirmed the disparity with Radiology. Under treatment for multiple myeloma, being referred for stem cell transplant. PT-OP-C Subjective Start: 08/04/22 17:19 Freq: Status: Active Protocol: Document 08/24/22 13:02 [facility] (Rec: 08/24/22 13:48 [facility] [id number]) OP-PT Subjective Patient Comments Patient Comments Was able to walk around [address] 2+ miles, some soreness end of day. Doing all exercises but has to do them more gently, pushed too hard on doorway. Continues to use tennis ball for self-massage. Still not tolerating laying in bed. PT-OP-J Posture/Palpation/Skin Start: 08/04/22 17:19 Freq: Status: Active Protocol: Document 08/05/22 14:53 [facility] (Rec: 08/05/22 16:18 [facility] [id number]) Posture Evaluation Position Standing Head/C-Spine Posture Forward Head T-Spine Posture Increased Kyphosis L-Spine Posture Decreased Lordosis Scapula Posture (R) Protracted,(L) Retracted Arm Posture (L) Internally Rotated,(R) Internally Rotated Palpation Assessment Location left thoracic Palpation Findings Tenderness Palpation Details T7-9 lateral radiating anterior PT-OP-K Range of Motion Start: 08/04/22 17:19 Freq: Status: Active Protocol: Document 08/05/22 14:53 [facility] (Rec: 08/05/22 16:18 [facility] [id number]) Lumbar Spine Range of Motion Lumbar Spine Active Testing Position Standing Flexion 15 Extension 10 Rotation Left 30 Rotation Right 40 Lateral Flexion Left 25 Lateral Flexion Right 35 ROM Limitations Pain PT-OP-Q Treatments Start: 08/04/22 17:19 Freq: Status: Active Protocol: Document 08/24/22 13:02 [facility] (Rec: 08/24/22 13:48 [facility] [id number]) Cardio Equipment Recumbent Stepper (Sci-Fit) Duration (Minutes) 10 Resistance 2.0 Seat Position 13 Other RPM's to 80 Therapeutic Exercises Sitting Exercises trunk rotation. Reps/Minutes 3x Comments cues for deep breath end range lateral lean, push up Reps/Minutes 5x ea Comments cues for pain-free ROM Standing Exercises wall posture Standing Exercise Name postural amadeo, angels Reps/Minutes 10x ea row, sh ext Resistance L1>2 TB Reps/Minutes 12x Comments verbal and tactile cues Manual Therapy Treatment Soft Tissue Mobilization thoracolumbar paraspinals Mobilization Type Myofascial Release,Strumming Intensity/Depth Moderate Body Position Sitting Comments leaning forward on pillows, prone pillow PT-OP-T Assessment and Plan Start: 08/04/22 17:19 Freq: Status: Active Protocol: Document 08/24/22 13:02 [facility] (Rec: 08/24/22 13:48 [facility] [id number]) Physical Therapy Assessment Goals Three Impairment limited trunk ROM Impairment decreased left trunk rotation and pain with left sidebending limiting that motion forward trunk flexion limited to 15 deg vs typically able to touch the floor Chief Medical Technologist Goal (LTG) patient to demonstrate trunk mobility WNL including ability to return to ability to touch the floor in a standing position and normal trunk rotation and sidebending LTG Duration 11/05/22 Two Impairment postural dysfunction Impairment excess thoracic kyphosis, protracted and elevated scapulas, winging right scapula, flattened lumbar spine, Short Term Goal (STG) Patient to be instructed in neutral postural alignment and in HEP for purposes of postural correction including strengthening posterior chain musculature STG Duration 09/19/22 [facility] Goal (LTG) Patient to demonstrate ability to self-correct posture at rest and with functional activities and be indep with postural correction exercises LTG Duration 11/05/22 One Impairment Pain left thoracic spine with radiation anteriorly Impairment severe limitation in activity level and unable to lay in bed to sleep Short Term Goal (STG) Decrease pain at least 50% with all usual activity. STG Duration 09/19/22 [facility] Goal (LTG) Decrease pain by at least 75% with all usual activies, and able to return to sleeping in bed and resume his usual exercise activities without an increase in pain LTG Duration 11/05/22 Assessment Summary Assessment steady progress with decreasing pain, improving activity tolerance. Excellent compliance with HEP. Physical Therapy Plan Frequency and Duration Frequency of Treatment 2x/Week Duration of treatment (weeks) 12 Plan of Care Start Date 08/05/22 Plan of Care End Date 11/05/22 Therapeutic Interventions Therapeutic Interventions Home Exercise Program,Manual Therapy,Patient/Caregiver Education,Self-Care/Home Management,Soft Tissue Mobilization,Taping, Therapeutic Activities, Therapeutic Exercises Modalities Cold Pack/Ice Massage,Electric Stimulation,Hot Packs, Ultrasound Next Visit Focus/Plan Next Note Type Treatment Note Next Visit Plan Continue gentle progression of ther ex, manual techniques.
--- NOTE | 2022-08-27 13:45 | PT.OTN ---
Current Diagnoses Pain in thoracic spine (08/27/22) Abnormal posture (08/27/22) Weakness (08/27/22) Physical Therapy Treatment Note PT-OP-A Visit Information Start: 08/04/22 17:19 Freq: Status: Active Protocol: Document 08/27/22 13:06 [facility] (Rec: 08/27/22 13:57 [facility] [id number]) Out-Patient Physical Therapy Visit Information Visit Information Visit Type Treatment Note Visit Start Time 13:06 Visit Stop Time 13:45 Total Visit Minutes 39 Visit Number 6 Number of IMPROVEMENT COORDINATOR Visits 1 Evaluation Information Evaluation Date 08/05/22 Precautions Precautions Patient currently in treatment for lymphoma PT-OP-B Current Condition Start: 08/04/22 17:19 Freq: Status: Active Protocol: Document 08/24/22 13:02 [facility] (Rec: 08/24/22 13:48 [facility] [id number]) Current Condition History of Current Condition Onset Date 6-7 weeks Current Complaints mid back pain History of Current Condition in [place] in May, midway into [facility] pain came on for no known reason . Was taking walks of 4-8miles per day, some swimming and snorkeling, never felt injury. When got home Jul 3 continued to get worse. Couldn't take a deep breath; helped some with chiropractor. Following chiropractor visit told T10 locked up, loosened that up. Problem worst is at T7, chiropractor stated he couldn' t do anything. Pain is up under the bottom of left shoulder blade. Right now worst pain left lateral trunk. Doing some exercises that seem to help some; right sidebending stretch, trunk rotation. Hasn't been able to sleep in bed yet due to pain. Typically does a lot of core strength; planks, side planks but unable to do any exercise at this time. Only thing can think of cause is heavy suitcases (50#) though tried to be careful. Discrepancy between x-ray and MRI results. States Wednesday night at 6:30 a lot of the pain decreased significantly for no known reason , yesterday; while sitting in infusion chair pain went away for awhile; Tuesdays and Wednesdays are when gets infusions and including steriods; those are best days for his pain. Today is his best day in weeks. Seeing Chalino Garcia chiropractor. Prior Treatments and Tests per Dr. Avalos's note in EMR : Relevant medical history includes a recent spinal MRI done to assess multiple myeloma, which includes an incidental finding of an anterior compression defect at T7. An x-ray skeletal survey in April 2022 does not have this defect . I evaluated the images myself and confirmed the disparity with Radiology. Under treatment for multiple myeloma, being referred for stem cell transplant. PT-OP-C Subjective Start: 08/04/22 17:19 Freq: Status: Active Protocol: Document 08/27/22 13:06 [facility] (Rec: 08/27/22 13:57 [facility] [id number]) OP-PT Subjective Patient Comments Patient Comments Pt reports back little sore. Pt states performed some stretches this am and little better. No pain just tiring soreness. He states walked [place] last 2 days. Pt states ball wall back/shlds and doorway stretch helped tremendously can breath better and almost full ROM OH on wall. PT-OP-J Posture/Palpation/Skin Start: 08/04/22 17:19 Freq: Status: Active Protocol: Document 08/05/22 14:53 [facility] (Rec: 08/05/22 16:18 [facility] [id number]) Posture Evaluation Position Standing Head/C-Spine Posture Forward Head T-Spine Posture Increased Kyphosis L-Spine Posture Decreased Lordosis Scapula Posture (R) Protracted,(L) Retracted Arm Posture (L) Internally Rotated,(R) Internally Rotated Palpation Assessment Location left thoracic Palpation Findings Tenderness Palpation Details T7-9 lateral radiating anterior PT-OP-K Range of Motion Start: 08/04/22 17:19 Freq: Status: Active Protocol: Document 08/05/22 14:53 [facility] (Rec: 08/05/22 16:18 [facility] [id number]) Lumbar Spine Range of Motion Lumbar Spine Active Testing Position Standing Flexion 15 Extension 10 Rotation Left 30 Rotation Right 40 Lateral Flexion Left 25 Lateral Flexion Right 35 ROM Limitations Pain PT-OP-Q Treatments Start: 08/04/22 17:19 Freq: Status: Active Protocol: Document 08/27/22 13:06 [facility] (Rec: 08/27/22 13:57 SP [id number]) Cardio Equipment Recumbent Stepper (Sci-Fit) Duration (Minutes) 8 Resistance 2>2.5 Seat Position 13 cued TA fac to support vamshi Other RPM's to 80-82, 1.44 miles Therapeutic Exercises Standing Exercises triangle/reverse triangle Standing Exercise Name added to HEP Side bilateral Reps/Minutes 3 sec x5 reps each B Comments occasional cues for posturing and not over stress, palloff press Standing Exercise Name added to HEP (give HO next tx) Side bilateral Resistance Tb #2 Reps/Minutes 2x10 Comments cued tall posturing, wall posture Standing Exercise Name postural amadeo, angels Reps/Minutes 10x ea Comments improved ROM OH. little off wall end range row, sh ext Standing Exercise Name HEP reviewed Resistance L2 TB (green in PT) Reps/Minutes 12x Comments verbal and tactile cues Manual Therapy Treatment Soft Tissue Mobilization abdominals Body Location superior at ribcage Body Position Hooklying Comments gentle sustained pressure with breath with ed self seated/ standing. Self-Care/Home Management Treatment Education Patient Education Body Mechanics,Home Exercise Program,Joint Protection,Pain Management,Posture Other Education time spent ed use pillows sidelying: between BLEs/BUEs, under upper ribcage, good feedback response, will try home and get back to sleep in bed. PT-OP-T Assessment and Plan Start: 08/04/22 17:19 Freq: Status: Active Protocol: Document 08/27/22 13:06 [facility] (Rec: 08/27/22 13:57 SP [id number]) Physical Therapy Assessment Goals Three Impairment limited trunk ROM Impairment decreased left trunk rotation and pain with left sidebending limiting that motion forward trunk flexion limited to 15 deg vs typically able to touch the floor Residential Goal (LTG) patient to demonstrate trunk mobility WNL including ability to return to ability to touch the floor in a standing position and normal trunk rotation and sidebending LTG Duration 11/05/22 Two Impairment postural dysfunction Impairment excess thoracic kyphosis, protracted and elevated scapulas, winging right scapula, flattened lumbar spine, Short Term Goal (STG) Patient to be instructed in neutral postural alignment and in HEP for purposes of postural correction including strengthening posterior chain musculature STG Duration 09/19/22 Senior Construction Project Manager Goal (LTG) Patient to demonstrate ability to self-correct posture at rest and with functional activities and be indep with postural correction exercises LTG Duration 11/05/22 One Impairment Pain left thoracic spine with radiation anteriorly Impairment severe limitation in activity level and unable to lay in bed to sleep Short Term Goal (STG) Decrease pain at least 50% with all usual activity. STG Duration 09/19/22 [facility] Goal (LTG) Decrease pain by at least 75% with all usual activies, and able to return to sleeping in bed and resume his usual exercise activities without an increase in pain LTG Duration 11/05/22 Assessment Summary Assessment Pt good response to HEP review , added palloff press and triangle/reverse triangle to allow TS rotation/ scapular ROM and core fac. Good feedback and ed for self STM superior abdominals at ribcage to assist posture and volume breath by end tx. Physical Therapy Plan Frequency and Duration Frequency of Treatment 2x/Week Duration of treatment (weeks) 12 Plan of Care Start Date 08/05/22 Plan of Care End Date 11/05/22 Therapeutic Interventions Therapeutic Interventions Home Exercise Program,Manual Therapy,Patient/Caregiver Education,Self-Care/Home Management,Soft Tissue Mobilization,Taping, Therapeutic Activities, Therapeutic Exercises Modalities Cold Pack/Ice Massage,Electric Stimulation,Hot Packs, Ultrasound Next Visit Focus/Plan Next Note Type Treatment Note Next Visit Plan Continue gentle progression of ther ex, manual techniques.
--- NOTE | 2022-08-31 16:02 | PT.OTN ---
Current Diagnoses Pain in thoracic spine (08/31/22) Abnormal posture (08/31/22) Weakness (08/31/22) Physical Therapy Treatment Note PT-OP-A Visit Information Start: 08/04/22 17:19 Freq: Status: Active Protocol: Document 08/31/22 13:51 AMB (Rec: 08/31/22 14:32 AMB [id number]) Out-Patient Physical Therapy Visit Information Visit Information Visit Type Treatment Note Visit Start Time 13:50 Visit Stop Time 14:30 Total Visit Minutes 39 Visit Number 7 PT-OP-B Current Condition Start: 08/04/22 17:19 Freq: Status: Active Protocol: Document 08/24/22 13:02 SAK (Rec: 08/24/22 13:48 SAK [id number]) Current Condition History of Current Condition Onset Date 6-7 weeks Current Complaints mid back pain History of Current Condition in [place] in May, midway into [facility] pain came on for no known reason . Was taking walks of 4-8miles per day, some swimming and snorkeling, never felt injury. When got home Jul 03 continued to get worse. Couldn't take a deep breath; helped some with chiropractor. Following chiropractor visit told T10 locked up, loosened that up. Problem worst is at T7, chiropractor stated he couldn' t do anything. Pain is up under the bottom of left shoulder blade. Right now worst pain left lateral trunk. Doing some exercises that seem to help some; right sidebending stretch, trunk rotation. Hasn't been able to sleep in bed yet due to pain. Typically does a lot of core strength; planks, side planks but unable to do any exercise at this time. Only thing can think of cause is heavy suitcases (50#) though tried to be careful. Discrepancy between x-ray and MRI results. States Wednesday night at 6:30 a lot of the pain decreased significantly for no known reason , yesterday; while sitting in infusion chair pain went away for awhile; Tuesdays and Wednesdays are when gets infusions and including steriods; those are best days for his pain. Today is his best day in weeks. Seeing Chalino Garcia chiropractor. Prior Treatments and Tests per Dr. Avalos's note in EMR : Relevant medical history includes a recent spinal MRI done to assess multiple myeloma, which includes an incidental finding of an anterior compression defect at T7. An x-ray skeletal survey in April 2022 does not have this defect . I evaluated the images myself and confirmed the disparity with Radiology. Under treatment for multiple myeloma, being referred for stem cell transplant. PT-OP-C Subjective Start: 08/04/22 17:19 Freq: Status: Active Protocol: Document 08/31/22 13:51 AMB (Rec: 08/31/22 14:32 AMB [id number]) OP-PT Subjective Patient Comments Patient Comments Pt has slept in his own bed starting last and is feeling a bit better with that . Low back pain and stiffness today. PT-OP-J Posture/Palpation/Skin Start: 08/04/22 17:19 Freq: Status: Active Protocol: Document 08/05/22 14:53 SAK (Rec: 08/05/22 16:18 SAK [id number]) Posture Evaluation Position Standing Head/C-Spine Posture Forward Head T-Spine Posture Increased Kyphosis L-Spine Posture Decreased Lordosis Scapula Posture (R) Protracted,(L) Retracted Arm Posture (L) Internally Rotated,(R) Internally Rotated Palpation Assessment Location left thoracic Palpation Findings Tenderness Palpation Details T7-9 lateral radiating anterior PT-OP-K Range of Motion Start: 08/04/22 17:19 Freq: Status: Active Protocol: Document 08/05/22 14:53 SAK (Rec: 08/05/22 16:18 SAK [id number]) Lumbar Spine Range of Motion Lumbar Spine Active Testing Position Standing Flexion 15 Extension 10 Rotation Left 30 Rotation Right 40 Lateral Flexion Left 25 Lateral Flexion Right 35 ROM Limitations Pain PT-OP-Q Treatments Start: 08/04/22 17:19 Freq: Status: Active Protocol: Document 08/31/22 13:51 AMB (Rec: 08/31/22 14:32 AMB [id number]) Cardio Equipment Recumbent Stepper (Sci-Fit) Duration (Minutes) 8 Resistance 2>2.5 Seat Position 13 cued TA fac to support vamshi Other RPM's to 80-82, 1.3 Therapeutic Exercises Standing Exercises wall posture Standing Exercise Name postural amadeo, angels Reps/Minutes 10x ea Comments avoiding pain in obliques row, sh ext Standing Exercise Name HEP reviewed Resistance L2 TB (green in PT) Reps/Minutes 12x Comments verbal and tactile cues Other Exercises cat cow Other Exercise Name avoiding excessive flexion Reps/Minutes 10 Comments in quadruped thread the needle Reps/Minutes 10 Therapeutic Activity Therapeutic Activity 1 Reps/Minutes 15 Comments Education on body mechanics and return to HEP given pt's new osteopenia diagnosis and compression fracture. Pt was previously doing sit ups, encouraged to avoid those for now, given handout on appropriate yoga from [employer], see handouts scanned in. Pt does row for exercise in the summer and did not tell pt to completely avoid, but to be very aware of hip vs spinal flexion. PT-OP-T Assessment and Plan Start: 08/04/22 17:19 Freq: Status: Active Protocol: Document 08/31/22 13:51 AMB (Rec: 08/31/22 14:32 AMB [id number]) Physical Therapy Assessment Goals Three Impairment limited trunk ROM Impairment decreased left trunk rotation and pain with left sidebending limiting that motion forward trunk flexion limited to 15 deg vs typically able to touch the floor Longterm Goal (LTG) patient to demonstrate trunk mobility WNL including ability to return to ability to touch the floor in a standing position and normal trunk rotation and sidebending LTG Duration 11/05/22 Two Impairment postural dysfunction Impairment excess thoracic kyphosis, protracted and elevated scapulas, winging right scapula, flattened lumbar spine, Short Term Goal (STG) Patient to be instructed in neutral postural alignment and in HEP for purposes of postural correction including strengthening posterior chain musculature STG Duration 09/19/22 Patcher Wood Welder Goal (LTG) Patient to demonstrate ability to self-correct posture at rest and with functional activities and be indep with postural correction exercises LTG Duration 11/05/22 One Impairment Pain left thoracic spine with radiation anteriorly Impairment severe limitation in activity level and unable to lay in bed to sleep Short Term Goal (STG) Decrease pain at least 50% with all usual activity. STG Duration 09/19/22 Longterm Goal (LTG) Decrease pain by at least 75% with all usual activies, and able to return to sleeping in bed and resume his usual exercise activities without an increase in pain LTG Duration 11/05/22 Assessment Summary Assessment Marlo is doing better with his back, is noticing oblique pain he thinks associated with going overboard with wall posture, encouraged moderation with all exercises. Encouraged extension exercise focus avoiding resisted flexion both in ADLs and in HEP. Physical Therapy Plan Frequency and Duration Frequency of Treatment 2x/Week Duration of treatment (weeks) 12 Plan of Care Start Date 08/05/22 Plan of Care End Date 11/05/22 Therapeutic Interventions Therapeutic Interventions Home Exercise Program,Manual Therapy,Patient/Caregiver Education,Self-Care/Home Management,Soft Tissue Mobilization,Taping, Therapeutic Activities, Therapeutic Exercises Modalities Cold Pack/Ice Massage,Electric Stimulation,Hot Packs, Ultrasound Next Visit Focus/Plan Next Note Type Treatment Note Next Visit Plan Continue gentle progression of ther ex, manual techniques.
--- NOTE | 2022-09-09 15:38 | PT.OTN ---
Current Diagnoses Pain in thoracic spine (09/09/22) Abnormal posture (09/09/22) Weakness (09/09/22) Physical Therapy Treatment Note PT-OP-A Visit Information Start: 08/04/22 17:19 Freq: Status: Active Protocol: Document 09/09/22 12:53 SW (Rec: 09/09/22 15:28 SW [id number]) Out-Patient Physical Therapy Visit Information Visit Information Visit Type Treatment Note Visit Start Time 12:53 Visit Stop Time 13:41 Total Visit Minutes 48 Visit Number 8 Number of DEVELOPER ADVOCATE Visits 1 PT-OP-B Current Condition Start: 08/04/22 17:19 Freq: Status: Active Protocol: Document 08/24/22 13:02 SAK (Rec: 08/24/22 13:48 SAK [id number]) Current Condition History of Current Condition Onset Date 6-7 weeks Current Complaints mid back pain History of Current Condition in [place] in May, midway into [facility] pain came on for no known reason . Was taking walks of 4-8miles per day, some swimming and snorkeling, never felt injury. When got home Jul 03 continued to get worse. Couldn't take a deep breath; helped some with chiropractor. Following chiropractor visit told T10 locked up, loosened that up. Problem worst is at T7, chiropractor stated he couldn' t do anything. Pain is up under the bottom of left shoulder blade. Right now worst pain left lateral trunk. Doing some exercises that seem to help some; right sidebending stretch, trunk rotation. Hasn't been able to sleep in bed yet due to pain. Typically does a lot of core strength; planks, side planks but unable to do any exercise at this time. Only thing can think of cause is heavy suitcases (50#) though tried to be careful. Discrepancy between x-ray and MRI results. States Wednesday night at 6:30 a lot of the pain decreased significantly for no known reason , yesterday; while sitting in infusion chair pain went away for awhile; Tuesdays and Wednesdays are when gets infusions and including steriods; those are best days for his pain. Today is his best day in weeks. Seeing Chalino Garcia chiropractor. Prior Treatments and Tests per Dr. Avalos's note in EMR : Relevant medical history includes a recent spinal MRI done to assess multiple myeloma, which includes an incidental finding of an anterior compression defect at T7. An x-ray skeletal survey in April 2022 does not have this defect . I evaluated the images myself and confirmed the disparity with Radiology. Under treatment for multiple myeloma, being referred for stem cell transplant. PT-OP-C Subjective Start: 08/04/22 17:19 Freq: Status: Active Protocol: Document 09/09/22 12:53 SW (Rec: 09/09/22 15:28 SW [id number]) OP-PT Subjective Patient Comments Patient Comments Pt reports he feels improvement. Pleased with progress, happy that he is able to walk around [facility] and get 4-5 hour stretch of sleep vs the 3-4 he previously was getting. Doorway stretch eases soft tissue pain around waist. Wall angels aggravate pain around the waist. He reports he has always lived an active lifestyle and this is his first experience going to PT, and he is happy with the pt education he is receiving. He states he is motivated to do the exercises. PT-OP-J Posture/Palpation/Skin Start: 08/04/22 17:19 Freq: Status: Active Protocol: Document 08/05/22 14:53 SAK (Rec: 08/05/22 16:18 SAK [id number]) Posture Evaluation Position Standing Head/C-Spine Posture Forward Head T-Spine Posture Increased Kyphosis L-Spine Posture Decreased Lordosis Scapula Posture (R) Protracted,(L) Retracted Arm Posture (L) Internally Rotated,(R) Internally Rotated Palpation Assessment Location left thoracic Palpation Findings Tenderness Palpation Details T7-9 lateral radiating anterior PT-OP-K Range of Motion Start: 08/04/22 17:19 Freq: Status: Active Protocol: Document 08/05/22 14:53 SAK (Rec: 08/05/22 16:18 SAK [id number]) Lumbar Spine Range of Motion Lumbar Spine Active Testing Position Standing Flexion 15 Extension 10 Rotation Left 30 Rotation Right 40 Lateral Flexion Left 25 Lateral Flexion Right 35 ROM Limitations Pain PT-OP-Q Treatments Start: 08/04/22 17:19 Freq: Status: Active Protocol: Document 09/09/22 12:53 SW (Rec: 09/09/22 15:28 SW [id number]) Cardio Equipment Recumbent Elliptical (Biodex) Duration (Minutes) 8 Resistance 5 Seat Position 7 Therapeutic Exercises Prone Exercises Extension Prone Exercise Name Extension press up Reps/Minutes 10x Comments VC to maintain chin tuck to keep cervical spin in neutral Standing Exercises Bentover Row Side bilateral Resistance 4 lb weight Reps/Minutes 10x each Comments VC for form, tactile cueing for activation of the rhomboids and serratus wall posture Standing Exercise Name postural amadeo, angels Reps/Minutes 10x ea Comments avoiding pain in obliques Other Exercises cat cow Other Exercise Name avoiding excessive flexion Reps/Minutes 10 Comments in quadruped Self-Care/Home Management Treatment Education Patient Education Body Mechanics,Home Exercise Program,Joint Protection,Pain Management,Posture Other Education Educated patient on the importance of posture and breathing during HEP to avoid aggravation of symptoms. Educated patient on osteopenia , the effects of weight bearing on bone density, and avoiding excessive flexion. PT-OP-T Assessment and Plan Start: 08/04/22 17:19 Freq: Status: Active Protocol: Document 09/09/22 12:53 SW (Rec: 09/09/22 15:28 [id number]) Physical Therapy Assessment Goals Three Impairment limited trunk ROM Impairment decreased left trunk rotation and pain with left sidebending limiting that motion forward trunk flexion limited to 15 deg vs typically able to touch the floor Fpc Goal (LTG) patient to demonstrate trunk mobility WNL including ability to return to ability to touch the floor in a standing position and normal trunk rotation and sidebending LTG Duration 11/05/22 Two Impairment postural dysfunction Impairment excess thoracic kyphosis, protracted and elevated scapulas, winging right scapula, flattened lumbar spine, Short Term Goal (STG) Patient to be instructed in neutral postural alignment and in HEP for purposes of postural correction including strengthening posterior chain musculature STG Duration 09/19/22 Fpc Goal (LTG) Patient to demonstrate ability to self-correct posture at rest and with functional activities and be indep with postural correction exercises LTG Duration 11/05/22 One Impairment Pain left thoracic spine with radiation anteriorly Impairment severe limitation in activity level and unable to lay in bed to sleep Short Term Goal (STG) Decrease pain at least 50% with all usual activity. STG Duration 09/19/22 Server Manager Goal (LTG) Decrease pain by at least 75% with all usual activies, and able to return to sleeping in bed and resume his usual exercise activities without an increase in pain LTG Duration 11/05/22 Assessment Summary Assessment Pt. reports he is noticing progress. He is picking and choosing his HEP exercises, states that some of them are aggravating the pain around his waist, educated him on the importance of posture during HEP and reviewed HEP for postural corrections to avoid the discomfort. Introduced a bent over row this session, he would like it added to his HEP, but I felt the need to review next session for carryover of body mechanics before implenting into his HEP . Physical Therapy Plan Frequency and Duration Frequency of Treatment 2x/Week Duration of treatment (weeks) 12 Plan of Care Start Date 08/05/22 Plan of Care End Date 11/05/22 Therapeutic Interventions Therapeutic Interventions Home Exercise Program,Manual Therapy,Patient/Caregiver Education,Self-Care/Home Management,Soft Tissue Mobilization,Taping, Therapeutic Activities, Therapeutic Exercises Modalities Cold Pack/Ice Massage,Electric Stimulation,Hot Packs, Ultrasound Next Visit Focus/Plan Next Note Type Treatment Note Next Visit Plan Continue gentle progression of ther ex, manual techniques.
--- NOTE | 2022-09-14 16:11 | PT.OTN ---
Current Diagnoses Pain in thoracic spine (09/14/22) Abnormal posture (09/14/22) Weakness (09/14/22) Physical Therapy Treatment Note PT-OP-A Visit Information Start: 08/04/22 17:19 Freq: Status: Active Protocol: Document 09/14/22 15:16 SAK (Rec: 09/14/22 16:11 SAK [id number]) Out-Patient Physical Therapy Visit Information Visit Information Visit Type Treatment Note Visit Start Time 15:16 Visit Stop Time 16:00 Total Visit Minutes 44 Visit Number 9 Number of FORMING YARDAGE CONTROL OPERATOR Visits 0 PT-OP-B Current Condition Start: 08/04/22 17:19 Freq: Status: Active Protocol: Document 08/24/22 13:02 SAK (Rec: 08/24/22 13:48 SAK [id number]) Current Condition History of Current Condition Onset Date 6-7 weeks Current Complaints mid back pain History of Current Condition in [place] in May, midway into [facility] pain came on for no known reason . Was taking walks of 4-8miles per day, some swimming and snorkeling, never felt injury. When got home Jul 03 continued to get worse. Couldn't take a deep breath; helped some with chiropractor. Following chiropractor visit told T10 locked up, loosened that up. Problem worst is at T7, chiropractor stated he couldn' t do anything. Pain is up under the bottom of left shoulder blade. Right now worst pain left lateral trunk. Doing some exercises that seem to help some; right sidebending stretch, trunk rotation. Hasn't been able to sleep in bed yet due to pain. Typically does a lot of core strength; planks, side planks but unable to do any exercise at this time. Only thing can think of cause is heavy suitcases (50#) though tried to be careful. Discrepancy between x-ray and MRI results. States Wednesday night at 6:30 a lot of the pain decreased significantly for no known reason , yesterday; while sitting in infusion chair pain went away for awhile; Tuesdays and Wednesdays are when gets infusions and including steriods; those are best days for his pain. Today is his best day in weeks. Seeing Chalino Garcia chiropractor. Prior Treatments and Tests per Dr. Avalos's note in EMR : Relevant medical history includes a recent spinal MRI done to assess multiple myeloma, which includes an incidental finding of an anterior compression defect at T7. An x-ray skeletal survey in April 2022 does not have this defect . I evaluated the images myself and confirmed the disparity with Radiology. Under treatment for multiple myeloma, being referred for stem cell transplant. PT-OP-C Subjective Start: 08/04/22 17:19 Freq: Status: Active Protocol: Document 09/14/22 15:16 SAK (Rec: 09/14/22 16:11 [facility] [id number]) OP-PT Subjective Patient Comments Patient Comments The terrible pain his back is gone. 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 Can now sleep in bed, getting up better. Compliant with HEP. Doing bent over row, doesn't hurt but wants PT to check form. Hasn't done planks for a long time. left lateral rib area with some pain. Feels PT has been very helpful Patient Reported Progress Improving PT-OP-J Posture/Palpation/Skin Start: 08/04/22 17:19 Freq: Status: Active Protocol: Document 08/05/22 14:53 [facility] (Rec: 08/05/22 16:18 [facility] [id number]) Posture Evaluation Position Standing Head/C-Spine Posture Forward Head T-Spine Posture Increased Kyphosis L-Spine Posture Decreased Lordosis Scapula Posture (R) Protracted,(L) Retracted Arm Posture (L) Internally Rotated,(R) Internally Rotated Palpation Assessment Location left thoracic Palpation Findings Tenderness Palpation Details T7-9 lateral radiating anterior PT-OP-K Range of Motion Start: 08/04/22 17:19 Freq: Status: Active Protocol: Document 08/05/22 14:53 [facility] (Rec: 08/05/22 16:18 [facility] [id number]) Lumbar Spine Range of Motion Lumbar Spine Active Testing Position Standing Flexion 15 Extension 10 Rotation Left 30 Rotation Right 40 Lateral Flexion Left 25 Lateral Flexion Right 35 ROM Limitations Pain PT-OP-Q Treatments Start: 08/04/22 17:19 Freq: Status: Active Protocol: Document 09/14/22 15:16 SAK (Rec: 09/14/22 16:11 [facility] [id number]) Cardio Equipment Recumbent Stepper (Sci-Fit) Duration (Minutes) 10 Resistance 2.5 Seat Position 13 Therapeutic Exercises Prone Exercises Extension Prone Exercise Name Extension press up Reps/Minutes 10x Comments VC to maintain chin tuck to keep cervical spin in neutral Standing Exercises Bentover Row Side bilateral Resistance 4 lb weight Reps/Minutes 10x each Comments VC for form, tactile cueing for activation of the rhomboids and serratus Other Exercises bird dog Reps/Minutes 10x cat cow Other Exercise Name avoiding excessive flexion Reps/Minutes 10 Comments in quadruped Manual Therapy Treatment Soft Tissue Mobilization obliques Body Location left lateral Mobilization Type Myofascial Release,Sustained Pressure Intensity/Depth Moderate Body Position right sidelying Comments sustained pressure inf rib with deep breathing; reports pain relieved after technique Self-Care/Home Management Treatment Education Patient Education Body Mechanics,Home Exercise Program,Joint Protection,Pain Management,Posture PT-OP-T Assessment and Plan Start: 08/04/22 17:19 Freq: Status: Active Protocol: Document 09/14/22 15:16 [facility] (Rec: 09/14/22 16:11 [facility] [id number]) Physical Therapy Assessment Goals Three Impairment limited trunk ROM Impairment decreased left trunk rotation and pain with left sidebending limiting that motion forward trunk flexion limited to 15 deg vs typically able to touch the floor Auto Air Conditioning Installer Goal (LTG) patient to demonstrate trunk mobility WNL including ability to return to ability to touch the floor in a standing position and normal trunk rotation and sidebending LTG Duration 11/05/22 Two Impairment postural dysfunction Impairment excess thoracic kyphosis, protracted and elevated scapulas, winging right scapula, flattened lumbar spine, Short Term Goal (STG) Patient to be instructed in neutral postural alignment and in HEP for purposes of postural correction including strengthening posterior chain musculature STG Duration 09/19/22 Auto Air Conditioning Installer Goal (LTG) Patient to demonstrate ability to self-correct posture at rest and with functional activities and be indep with postural correction exercises LTG Duration 11/05/22 One Impairment Pain left thoracic spine with radiation anteriorly Impairment severe limitation in activity level and unable to lay in bed to sleep Short Term Goal (STG) Decrease pain at least 50% with all usual activity. STG Duration 09/19/22 Longterm Goal (LTG) Decrease pain by at least 75% with all usual activies, and able to return to sleeping in bed and resume his usual exercise activities without an increase in pain LTG Duration 11/05/22 Progress Towards Goals Progress Towards Goals Progressing Toward Goals Assessment Summary Assessment Good progress toward goals. Good relief of left lower rib pain with myofascial release with deep breathing Physical Therapy Plan Frequency and Duration Frequency of Treatment 2x/Week Duration of treatment (weeks) 12 Plan of Care Start Date 08/05/22 Plan of Care End Date 11/05/22 Therapeutic Interventions Therapeutic Interventions Home Exercise Program,Manual Therapy,Patient/Caregiver Education,Self-Care/Home Management,Soft Tissue Mobilization,Taping, Therapeutic Activities, Therapeutic Exercises Modalities Cold Pack/Ice Massage,Electric Stimulation,Hot Packs, Ultrasound Next Visit Focus/Plan Next Note Type Treatment Note Next Visit Plan Reassessment, final review and modifications as needed. ASsess response to plank. Further manual technique and review for self myofascial release. Anticipate discharge
--- NOTE | 2022-09-16 12:18 | PT.OTN ---
Current Diagnoses Pain in thoracic spine (09/16/22) Abnormal posture (09/16/22) Weakness (09/16/22) Physical Therapy Treatment Note PT-OP-A Visit Information Start: 08/04/22 17:19 Freq: Status: Active Protocol: Document 09/16/22 11:18 SAK (Rec: 09/16/22 12:17 SAK [id number]) Out-Patient Physical Therapy Visit Information Visit Information Visit Type Treatment Note Visit Start Time 11:18 Visit Stop Time 12:00 Total Visit Minutes 42 Visit Number 10 Number of SURGICAL ONCOLOGIST Visits 0 PT-OP-B Current Condition Start: 08/04/22 17:19 Freq: Status: Active Protocol: Document 08/24/22 13:02 SAK (Rec: 08/24/22 13:48 SAK [id number]) Current Condition History of Current Condition Onset Date 6-7 weeks Current Complaints mid back pain History of Current Condition in [place] in May, midway into the [facility] pain came on for no known reason . Was taking walks of 4-8miles per day, some swimming and snorkeling, never felt injury. When got home Jul 03 continued to get worse. Couldn't take a deep breath; helped some with chiropractor. Following chiropractor visit told T10 locked up, loosened that up. Problem worst is at T7, chiropractor stated he couldn' t do anything. Pain is up under the bottom of left shoulder blade. Right now worst pain left lateral trunk. Doing some exercises that seem to help some; right sidebending stretch, trunk rotation. Hasn't been able to sleep in bed yet due to pain. Typically does a lot of core strength; planks, side planks but unable to do any exercise at this time. Only thing can think of cause is heavy suitcases (50#) though tried to be careful. Discrepancy between x-ray and MRI results. States Wednesday night at 6:30 a lot of the pain decreased significantly for no known reason , yesterday; while sitting in infusion chair pain went away for awhile; Tuesdays and Wednesdays are when gets infusions and including steriods; those are best days for his pain. Today is his best day in weeks. Seeing Chalino Garcia chiropractor. Prior Treatments and Tests per Dr. Avalos's note in EMR : Relevant medical history includes a recent spinal MRI done to assess multiple myeloma, which includes an incidental finding of an anterior compression defect at T7. An x-ray skeletal survey in April 2022 does not have this defect . I evaluated the images myself and confirmed the disparity with Radiology. Under treatment for multiple myeloma, being referred for stem cell transplant. PT-OP-C Subjective Start: 08/04/22 17:19 Freq: Status: Active Protocol: Document 09/16/22 11:18 SAK (Rec: 09/16/22 12:17 [facility] [id number]) OP-PT Subjective Patient Comments Patient Comments Woke up with sorness right anterior rib, otherwise doing ok, buzzing from steroid treatments for CA. No ill effects from 5 min rowing machine Patient Reported Progress Improving PT-OP-J Posture/Palpation/Skin Start: 08/04/22 17:19 Freq: Status: Active Protocol: Document 08/05/22 14:53 SAK (Rec: 08/05/22 16:18 SAK [id number]) Posture Evaluation Position Standing Head/C-Spine Posture Forward Head T-Spine Posture Increased Kyphosis L-Spine Posture Decreased Lordosis Scapula Posture (R) Protracted,(L) Retracted Arm Posture (L) Internally Rotated,(R) Internally Rotated Palpation Assessment Location left thoracic Palpation Findings Tenderness Palpation Details T7-9 lateral radiating anterior PT-OP-K Range of Motion Start: 08/04/22 17:19 Freq: Status: Active Protocol: Document 08/05/22 14:53 SAK (Rec: 08/05/22 16:18 [facility] [id number]) Lumbar Spine Range of Motion Lumbar Spine Active Testing Position Standing Flexion 15 Extension 10 Rotation Left 30 Rotation Right 40 Lateral Flexion Left 25 Lateral Flexion Right 35 ROM Limitations Pain PT-OP-Q Treatments Start: 08/04/22 17:19 Freq: Status: Active Protocol: Document 09/16/22 11:18 SAK (Rec: 09/16/22 12:17 SAK [id number]) Cardio Equipment Recumbent Stepper (Sci-Fit) Duration (Minutes) 10 Resistance 2.5 Seat Position 13 Therapeutic Exercises Supine Exercises deep breathing Reps/Minutes 10x Comments with manual cues for rib expansion lower trunk rotation Reps/Minutes 5x Comments cues for gentle Sidelying Exercises open book Reps/Minutes 5x Comments cues for segmental movement, deep breath Manual Therapy Treatment Soft Tissue Mobilization obliques Body Location left lateral Mobilization Type Myofascial Release,Sustained Pressure Intensity/Depth Moderate Body Position right sidelying Comments less pain after last treatment but some persists; sustained pressure inf rib with deep breathing; reports pain relieved after technique Taping right rib Body Location ant T8 Treatment Focus pain relief Type of Tape kinesiotape Skin Inspection intact Comments space correction X Self-Care/Home Management Treatment Education Patient Education Body Mechanics,Home Exercise Program,Joint Protection,Pain Management,Posture PT-OP-T Assessment and Plan Start: 08/04/22 17:19 Freq: Status: Active Protocol: Document 09/16/22 11:18 [facility] (Rec: 09/16/22 12:17 [facility] [id number]) Physical Therapy Assessment Goals Three Impairment limited trunk ROM Impairment decreased left trunk rotation and pain with left sidebending limiting that motion forward trunk flexion limited to 15 deg vs typically able to touch the floor Correction Goal (LTG) patient to demonstrate trunk mobility WNL including ability to return to ability to touch the floor in a standing position and normal trunk rotation and sidebending LTG Duration 11/05/22 Two Impairment postural dysfunction Impairment excess thoracic kyphosis, protracted and elevated scapulas, winging right scapula, flattened lumbar spine, Short Term Goal (STG) Patient to be instructed in neutral postural alignment and in HEP for purposes of postural correction including strengthening posterior chain musculature 09/16/22: goal met STG Duration 09/19/22 Correction Goal (LTG) Patient to demonstrate ability to self-correct posture at rest and with functional activities and be indep with postural correction exercises 09/16/22: goal achieved LTG Duration 11/05/22 One Impairment Pain left thoracic spine with radiation anteriorly Impairment severe limitation in activity level and unable to lay in bed to sleep Short Term Goal (STG) Decrease pain at least 50% with all usual activity. 09/16/22 goal met STG Duration 09/19/22 Correction Goal (LTG) Decrease pain by at least 75% with all usual activies, and able to return to sleeping in bed and resume his usual exercise activities without an increase in pain 09/16/22: goal met, pain dec from 7-9/10 to 2-3/10 LTG Duration 11/05/22 Progress Towards Goals Progress Towards Goals Goals Met Assessment Summary Assessment Patient has mostly met goals, compliant with HEP and self- care. Ready for discharge from PT Physical Therapy Plan Discharge Physical Therapy Discharge Reasons Goals Met
== END 2022-09-17 11:54 | disposition home or self-care (01) ==
LOC: PHYS 11:15
PROVIDERS: Absent Provider Student in an Organized Health Care Education/Training Program; Family Provider Student in an Organized Health Care Education/Training Program; PCP Student in an Organized Health Care Education/Training Program; Referring Provider Student in an Organized Health Care Education/Training Program; Visit Provider Student in an Organized Health Care Education/Training Program
DX: M54.6 Pain in thoracic spine (principal); R29.3 Abnormal posture; R53.1 Weakness
CPT/HCPCS: 97110; 97140; 97162; 97530; 97535

== ENCOUNTER → 2023-01-18 07:19 | Outpatient (CLI) | payer MEDICARE, OTHER, SELFPAY ==
[2023-01-18 08:25] LABS: Add Manual Diff / Slide Review NO; Basophils Absolute Auto 100 /uL (0-100); Basophils Percent Auto 2.9 % (0-2); Eosinophils Absolute Auto 700 /uL (0-450); Hematocrit 35.1 % (41-53); Hemoglobin 12.2 g/dL (13.5-17.5); Lymphocytes Absolute Auto 500 /uL (1100-4500); Lymphocytes Percent Auto 14.7 % (25-40); Mean Corpuscular HGB Conc 34.9 % (30-36); Mean Corpuscular Hemoglobin 32.2 PG (26-34); Mean Corpuscular Volume 92.3 fL (80-100); Monocytes Absolute Auto 400 /uL (0-900); Monocytes Percent Auto 12.5 % (3-14); Neutrophils Absolute Auto 1600 /uL (1500-7000); Neutrophils Percent Auto 48.9 % (50-75); Platelet Count 154 X10^3/uL (150-400); Red Cell Distribution Width 17.2 % (11.6-14.8); White Blood Cell Count 3.2 X10^3/uL (4.5-11.0)
[2023-01-18 09:09] LABS: Alanine Aminotransferase 18 IU/L (<50); Albumin Globulin Ratio 2.1 (1.0-2.8); Alkaline Phosphatase 60 U/L (38-126); Aspartate Aminotransferase 37 IU/L (17-59); BUN Creatinine Ratio 17.4 (6-22); Bilirubin Total 0.3 mg/dL (0.2-1.3); Bilirubin Unconjugated 0.3 mg/dL (0.0-1.1); Blood Urea Nitrogen 16 mg/dL (9-20); Calcium 9.1 mg/dL (8.4-10.2); Carbon Dioxide 28 mmol/L (22-32); Chloride 103 mmol/L (98-107); Estimated Glomerular Filt Rate > 60 mL/min (>60); Globulin 1.9 g/dL (1.7-4.1); Glucose 93 mg/dL (80-110); HEMOLYSIS < 15 (0-50); Magnesium 2.1 mg/dL (1.6-2.3); Phosphorous 3.7 mg/dL (2.3-3.7); Potassium 4.5 mmol/L (3.4-5.1); Sodium 136 mmol/L (137-145); Total Protein 5.9 g/dL (6.3-8.2)
[2023-01-22 13:53] LABS: CMV DNA, Quant Real Time PCR Negative (Negative)
== END ==
PROVIDERS: Family Provider Student in an Organized Health Care Education/Training Program; PCP Internal Medicine; Referring Provider Registered Nurse Registered Nurse First Assistant; Visit Provider Registered Nurse Registered Nurse First Assistant
DX: C90.00 Multiple myeloma not having achieved remission (principal); Z94.84 Stem cells transplant status
CPT/HCPCS: 36415; 80069; 80076; 83735; 85025; 87497

== ENCOUNTER → 2023-07-08 11:28 | Outpatient (CLI) | payer MEDICARE, OTHER, SELFPAY | PROVIDERS: Family Provider Student in an Organized Health Care Education/Training Program; PCP Internal Medicine; Referring Provider Nurse Practitioner Family; Visit Provider Nurse Practitioner Family | DX: R21 Rash and other nonspecific skin eruption (principal) | CPT/HCPCS: 36415; 86765 ==

== ENCOUNTER → 2025-01-03 07:26 | Outpatient (CLI) | payer MEDICARE, OTHER, SELFPAY ==
--- NOTE | 2025-01-03 07:29 | DI.US.S_ITS ---
PROCEDURE: US EXTREMITY NONVASC LOWER RT INDICATIONS: right groin mass TECHNIQUE: Real-time scanning was performed of the right inguinal region , with image documentation. COMPARISON: None. FINDINGS: Multiple grayscale color Doppler images of the right inguinal region were acquired. No inguinal hernia identified. Greater saphenous vein appears mildly enlarged over the palpable area of concern. No evidence for superficial venous thrombosis. No abnormal fluid collection. No adenopathy. IMPRESSION: Palpable area of concern correlates with a mildly enlarged greater saphenous vein in the right inguinal region. No evidence for superficial venous thrombosis. No adenopathy or suspicious mass/fluid. Dictated by: Deo Stacy M.D. on 01/03/2025 at 11:23 Approved by: Deo Stacy M.D. on 01/03/2025 at 11:25
== END ==
PROVIDERS: PCP Internal Medicine; Referring Provider Internal Medicine; Visit Provider Internal Medicine
DX: R19.09 Other intra-abdominal and pelvic swelling, mass and lump (principal)
CPT/HCPCS: 76882